=== PATIENT | female | born 1960 | race Caucasian/White ===

== ENCOUNTER 2019-04-07 14:20 | Observation (INO) | payer MEDICARE, BC ==
[2019-04-07] MEDS ORDERED: Potassium Chloride 20 MEQ in Premix Bag 1 BAG IV ONE ×3 (14:55→18:55)
[2019-04-07] MEDS ORDERED: Loperamide 2 MG Cap PO PRN (14:57)
[2019-04-07] MEDS ORDERED: Acetaminophen 325 MG Tab PO PRN (14:57)
[2019-04-07 15:48] LABS: ANION GAP 15.1 mmol/L (5-15); CHLORIDE,CL 101 mmol/L (98-115); SODIUM,NA 133 mmol/L (136-145)
[2019-04-07] MEDS: Dextrose 5%-0.45% NaCl 1,000 ML IV SCH (15:52)
[2019-04-07] MEDS ORDERED: guaiFENesin 600 MG Tab.ER PO PRN (17:01)
[2019-04-07] MEDS ORDERED: Lidocaine 2% 100 MG/5 ML Syringe IVPUSH PRN (19:07)
[2019-04-07] MEDS ORDERED: Atropine 0.1 MG/ML 10 ML Syringe IVPUSH PRN (19:07)
[2019-04-07] MEDS ORDERED: EPINEPHrine 1:10,000 1 MG/10 ML Syringe IVPUSH PRN (19:07)
[2019-04-07] MEDS ORDERED: Nitroglycerin 0.4 MG Tab.SL SL PRN (19:07)
[2019-04-07] MEDS ORDERED: Amitriptyline 25 MG Tab PO SCH (21:00)
[2019-04-07] MEDS ORDERED: Sertraline 50 MG Tab PO SCH (21:00)
[2019-04-07] MEDS ORDERED: Non-Formulary Medication 1 Each (Brinzolamide [Azopt 1% Ophth Susp] 1 DROP) EYEBOTH SCH (21:00)
[2019-04-07] MEDS: ACETAZOLAMIDE 125 MG PO SCH (21:23)
[2019-04-08] MEDS: Dextrose 5%-0.45% NaCl 1,000 ML IV SCH (00:27)
[2019-04-08] MEDS ORDERED: Omeprazole 20 MG Cap.CR PO SCH (07:30)
[2019-04-08 07:39] LABS: ANION GAP 16.9 mmol/L (5-15); CHLORIDE,CL 108 mmol/L (98-115); SODIUM,NA 142 mmol/L (136-145)
[2019-04-08] MEDS: ACETAZOLAMIDE 125 MG PO SCH ×3 (08:37→21:23)
[2019-04-08] MEDS ORDERED: Lisinopril 5 MG Tab PO SCH (09:00)
--- NOTE | 2019-04-08 10:51 | PCM.PN ---
- General Info Date of Service: 04/08/19 Functional Status: Reports: Pain Controlled, Tolerating Diet, Urinating, New Symptoms (Very tired and fatigued today). Denies: Ambulating - Review of Systems General: Reports: Weakness, Fatigue, Malaise. Denies: Fever HEENT: Reports: No Symptoms Pulmonary: Reports: No Symptoms Cardiovascular: Reports: No Symptoms Gastrointestinal: Reports: Decreased Appetite, Diarrhea. Denies: Abdominal Pain , Nausea, Vomiting Genitourinary: Reports: No Symptoms Musculoskeletal: Reports: No Symptoms Skin: Reports: Dryness Neurological: Denies: Confusion Psychiatric: Reports: No Symptoms - Patient Data Vitals - Most Recent: Last Vital Signs Temp 97.0 F 04/08/19 07:00 Pulse 76 04/08/19 07:00 Resp 20 04/08/19 07:00 BP 94/56 L 04/08/19 09:47 Pulse Ox 94 L 04/08/19 07:00 Weight - Most Recent: 159 lb 9.6 oz I&O - Last 24 Hours: Intake & Output 04/07/19 04/08/19 04/08/19 22:59 06:59 14:59 Intake Total 440 2339 Output Total 1000 Balance 440 1339 Lab Results Last 24 Hours: Laboratory Results - last 24 hr 04/07/19 04/08/19 04/08/19 Range/Units 15:05 00:15 07:00 Sodium 133 L D 142 (136-145) mmol/L Potassium 2.5 L 4.1 D 3.1 L (3.3-5.3) mmol/L Chloride 101 108 (98-115) mmol/L Carbon Dioxide 19.4 L 20.2 L (21.0-32.0) mmol/L Anion Gap 15.1 H 16.9 H (5-15) mmol/L BUN 10 6 (6-25) mg/dL Creatinine 0.83 0.64 (0.51-1.17) mg/dL Est Cr Clr Drug Dosing TNP 75.78 Estimated GFR (MDRD) > 60 > 60 mL/min Glucose 101 H 106 H (75 - 99) mg/dL Calcium 8.3 L 8.0 L (8.7-10.3) mg/dL Gallo Results Last 24 Hours: Microbiology 04/07/19 19:20 Stool for WBCs - Final Stool / Feces NO WBC SEEN REFERENCE RANGE: NO WBC SEEN 04/07/19 19:20 Clostridioides difficile Antigen - Final Stool / Feces NEGATIVE CDIFF AG REFERENCE RANGE: NEGATIVE Clostridioides difficile Toxin Assay - Final NEGATIVE CDIFF TOXIN REFERENCE RANGE: NEGATIVE Med Orders - Current: Current Medications Acetaminophen (Tylenol) 650 mg PO Q6H PRN PRN Reason: Fever Amitriptyline HCl (Elavil) 75 mg PO BEDTIME [facility] Last Admin: 04/07/19 21:23 Dose: 75 mg Atropine Sulfate (Atropine 0.1 Mg/Ml) 0 mg IVPUSH ASDIRECTED PRN PRN Reason: Heart. Epinephrine HCl (Epinephrine 1:10,000) 1 mg IVPUSH ASDIRECTED PRN PRN Reason: Heart. Guaifenesin (Mucinex) 600 mg PO BID PRN PRN Reason: Cough Dextrose/Sodium Chloride (Dextrose 5%-1/2 Ns) 1,000 mls @ 125 mls/hr IV ASDIRECTED [facility] Last Admin: 04/08/19 00:27 Dose: 125 mls/hr Lidocaine HCl (Xylocaine 2%) 0 mg IVPUSH ASDIRECTED PRN PRN Reason: Heart. Lisinopril (Prinivil) 5 mg PO DAILY [facility] Last Admin: 04/08/19 09:47 Dose: Not Given Loperamide HCl (Imodium) 2 mg PO Q4H PRN PRN Reason: Diarrhea Nitroglycerin (Nitrostat) 0.4 mg SL ASDIRECTED PRN PRN Reason: Heart. Non-Formulary Medication (Brinzolamide [Azopt 1% Ophth Susp]) 1 drop EYEBOTH BID [facility] Omeprazole (Omeprazole) 40 mg PO ACBREAKFAST [facility] Last Admin: 04/08/19 07:33 Dose: 40 mg Acetazolamide 125 Mg (Tab *Pt Own Med*) 0 each PO TID [facility] Last Admin: 04/08/19 08:37 Dose: 1 each Sertraline HCl (Zoloft) 150 mg PO BEDTIME [facility] Last Admin: 04/07/19 21:24 Dose: 150 mg Discontinued Medications Potassium Chloride 20 meq/ (Premix) 100 mls @ 50 mls/hr IV ONETIME ONE Stop: 04/07/19 16:54 Last Admin: 04/07/19 15:57 Dose: 50 mls/hr Potassium Chloride 20 meq/ (Premix) 100 mls @ 50 mls/hr IV ONETIME ONE Stop: 04/07/19 18:54 Last Admin: 04/07/19 18:05 Dose: 50 mls/hr Potassium Chloride 20 meq/ (Premix) 100 mls @ 50 mls/hr IV ONETIME ONE Stop: 04/07/19 20:54 Last Admin: 04/07/19 20:25 Dose: 50 mls/hr - Exam Quality Assessment: No: Supplemental Oxygen, DVT Prophylaxis General: Alert, Oriented, Cooperative, No Acute Distress Neck: No JVD Lungs: Clear to Auscultation, Normal Respiratory Effort Cardiovascular: Regular Rate, Regular Rhythm GI/Abdominal Exam: Normal Bowel Sounds, Soft, Non-Tender, No Distention. No: Distended, Guarding, Rigid, Rebound, Tender (Female) Exam: Deferred Back Exam: No: CVA Tenderness (L), CVA Tenderness (R) Extremities: No Pedal Edema Peripheral Pulses: 2+: Radial (L), Radial (R) Skin: Dry Neurological: No New Focal Deficit Psy/Mental Status: Alert, Labile Mood Sepsis Event Note - Evaluation Sepsis Screening Result: No Definite Risk - Focused Exam Vital Signs: Vital Signs Temp Pulse Resp BP BP Pulse Ox 04/08/19 09:47 94/56 L 04/08/19 07:00 97.0 F 76 20 94/54 L 94 L 04/08/19 02:57 97.0 F 71 20 98/60 94 L 04/07/19 22:53 98.0 F 80 20 120/67 96 Date Exam was Performed: 04/08/19 Time Exam was Performed: 10:38 - Problem List Review Problem List Initiated/Reviewed/Updated: Yes - Plan Plan:: History summary 58-year-old female was admitted yesterday from the [facility] by Radha BROWN due to symptoms suggestive of gastroenteritis came in with a 4-day history of URI type symptoms however started having diarrhea chills, dry heaves with decreased appetite and weakness alternating with undocumented fevers audible low potassium at 3.0. Patient was admitted to [facility] for further diagnostic work-up to exclude infectious diarrhea and potassium replacement along with IV fluids. Primary Hospital problems Hypokalemia Diarrhea, suspect gastroenteritis, Dehydration, profound, intravascular deficit Hypotension, likely volume deficit Chronic/stable problems HTN, holding ANNA inhibitor HLD, statin therapy Depression, amitriptyline, SSRI Disposition/overall plan --bolus fluids then change to D5-1/2 NS with potassium --Discontinue telemetry --Attempt to advance diet this evening --Antidiarrheal, C. difficile negative --Hold antihypertensives --OOB, to chair
[2019-04-08] MEDS ORDERED: Lactated Ringers 1,000 ML IV SCH (11:00)
[2019-04-08] MEDS: D5 1/2 NS w/ 40 mEq/L KCl 1,000 ML IV SCH (15:05)
[2019-04-08] MEDS ORDERED: AMITRIPTYLINE PO SCH (21:00)
[2019-04-08] MEDS ORDERED: SERTRALINE PO SCH (21:00)
[2019-04-08] MEDS: BRINZOLAMIDE EYEBOTH SCH (21:23)
[2019-04-09] MEDS: D5 1/2 NS w/ 40 mEq/L KCl 1,000 ML IV SCH (01:49)
[2019-04-09 07:18] VITALS: BP 110/67; PULSE 75
[2019-04-09] MEDS ORDERED: OMEPRAZOLE 40 MG PO SCH (07:30)
[2019-04-09] MEDS: BRINZOLAMIDE EYEBOTH SCH (08:11)
[2019-04-09] MEDS: ACETAZOLAMIDE 125 MG PO SCH ×2 (08:11→14:42)
[2019-04-09 08:18] LABS: ANION GAP 15.6 mmol/L (5-15); CHLORIDE,CL 111 mmol/L (98-115); SODIUM,NA 145 mmol/L (136-145)
[2019-04-09] MEDS ORDERED: LISINOPRIL 5 MG PO SCH ×2 (09:00)
== END 2019-04-09 16:25 | disposition home or self-care (01) ==
LOC: KA.MS 14:20
PROVIDERS: ADMIT Physician Assistant Medical; ATTEND Family Medicine
DX: K52.9 Noninfective gastroenteritis and colitis, unspecified (principal); E86.0 Dehydration; E87.6 Hypokalemia; I95.9 Hypotension, unspecified; I10 Essential (primary) hypertension; E78.5 Hyperlipidemia, unspecified; K21.9 Gastro-esophageal reflux disease without esophagitis; F32.9 Major depressive disorder, single episode, unspecified; Z79.899 Other long term (current) drug therapy
CPT/HCPCS: 36415; 80048; 84132; 87045; 87046; 87324; 87328; 87329; 87449; 87899; 89055; 96361; 96365; 96366; 96376; A9270; G0378; G0379; J3480; J7042; J7120

== ENCOUNTER 2020-12-22 22:30 | Observation (INO) | payer MEDICARE, BC ==
--- NOTE | 2020-12-22 23:44 | EDM.PDOC ---
ED HPI GENERAL MEDICAL PROBLEM - General Chief Complaint: General Stated Complaint: Weakness, emesis Time Seen by Provider: 12/22/20 22:40 Source of Information: Reports: Patient History Limitations: Reports: No Limitations - History of Present Illness INITIAL COMMENTS - FREE TEXT/NARRATIVE: 60-year-old female presents to the emergency room with complaints of vomiting episode earlier this evening. She reports approximately 2130 she had several emesis episodes. She denies significant abdominal pain currently no fever or chills she denies any recent upper respiratory infections, coughing, no chest pain or shortness of breath. She has not had any recurrence of the vomiting. She currently denies any nausea. She does state that she has frequent loose stools which is not uncommon for her. She did have a bowel movement this evening in the emergency room which was loose. She denies any blood in her stools. No blood in her urine. No frequency urgency. She feels that she became concerned because she had a previous episode back in 2014 when she had a small bowel obstruction which required her to be in hospital. She feels that she may have jumped the gun a little bit per patient's report. She is feeling much better. She does not wish to take any antinausea medication. No other complaints or concerns are voiced. Onset: Today, Sudden Onset Date: 12/22/20 Onset Time: 21:30 Duration: Minutes:, Resolved Prior to Arrival Location: Reports: Abdomen Quality: Reports: Ache Severity: Mild Improves with: Reports: None Worsens with: Reports: None Associated Symptoms: Reports: Nausea/Vomiting. Denies: Confusion, Chest Pain, Cough, Diaphoresis, Fever/Chills, Headaches, Loss of Appetite, Shortness of Breath, Syncope - Related Data Allergies Allergy/AdvReac Type Severity Reaction Status Date / Time No Known Allergies Allergy Verified 12/22/20 22:50 Home Meds: Home Meds Lisinopril 5 mg PO DAILY 11/12/14 [History] Omeprazole [Prilosec] 40 mg PO ACBREAKFAST 11/12/14 [History] Sertraline HCl 150 mg PO BEDTIME 11/12/14 [History] Acetaminophen [Tylenol Extra Strength] 500 - 1,000 mg PO Q4H PRN 04/07/19 [History] Amitriptyline HCl 75 mg PO BEDTIME 04/07/19 [History] Brinzolamide [Azopt 1% Ophth Susp] 1 drop EYEBOTH BID 04/07/19 [History] Ibuprofen 400 mg PO ASDIRECTED PRN 04/07/19 [History] atorvaSTATin [Lipitor] 20 mg PO DAILY 04/07/19 [History] polyethylene glycoL 3350 [MiraLAX] 17 gm PO DAILY PRN 04/07/19 [History] Past Medical History HEENT History: Reports: Impaired Vision, Other (See Below) Other HEENT History: Retinitis Pigmatosa Cardiovascular History: Reports: High Cholesterol, Hypertension Respiratory History: Reports: None Gastrointestinal History: Reports: Chronic Constipation, GERD Genitourinary History: Reports: Other (See Below) Other Genitourinary History: Prolapsed bladder [employer] HAND History: Reports: Musculoskeletal History: Reports: Amputation, Fibromyalgia Neurological History: Reports: None Psychiatric History: Reports: Anxiety, Depression Endocrine/Metabolic History: Reports: None Hematologic History: Reports: None Immunologic History: Reports: None Oncologic (Cancer) History: Reports: None Dermatologic History: Reports: None - Infectious Disease History Infectious Disease History: Reports: Chicken Pox - Past Surgical History Head Surgeries/Procedures: Reports: None HEENT Surgical History: Reports: Tonsillectomy Cardiovascular Surgical History: Reports: None Respiratory Surgical History: Reports: None GI Surgical History: Reports: Colonoscopy, EGD, Other (See Below) Other GI Surgeries/Procedures: Esophagus banding Female Surgical History: Reports: Tubal Ligation, Other (See Below) Other Female Surgeries/Procedures: Bladder lift; Left oophorectomy Endocrine Surgical History: Reports: None Neurological Surgical History: Reports: None Musculoskeletal Surgical History: Reports: Amputation, Arthroscopic Knee, Knee Replacement Other Musculoskeletal Surgeries/Procedures:: Lt knee Oncologic Surgical History: Reports: None Dermatological Surgical History: Reports: None Social & Family History - Family History Family Medical History: No Pertinent Family History - Tobacco Use Tobacco Use Status *Q: Never Tobacco User - Caffeine Use Caffeine Use: Reports: Coffee, Soda - Recreational Drug Use Recreational Drug Use: No ED ROS GENERAL - Review of Systems Review Of Systems: See Below Constitutional: Denies: Fever, Chills, Diaphoresis HEENT: Denies: Throat Pain, Throat Swelling, Vision Change Respiratory: Denies: Shortness of Breath, Wheezing Cardiovascular: Denies: Chest Pain, Lightheadedness Endocrine: Reports: No Symptoms GI/Abdominal: Reports: Diarrhea, Vomiting. Denies: Abdominal Pain, Anorexia, Black Stool, Bloody Stool, Distension, Hematemesis, Nausea : Denies: Discharge, Dysuria, Flank Pain, Frequency, Hematuria Musculoskeletal: Reports: No Symptoms Skin: Reports: No Symptoms Neurological: Reports: No Symptoms Psychiatric: Reports: No Symptoms Hematologic/Lymphatic: Reports: No Symptoms Immunologic: Reports: No Symptoms ED EXAM, GENERAL - Physical Exam Exam: See Below Exam Limited By: No Limitations General Appearance: Alert, WD/WN, No Apparent Distress Eye Exam: Bilateral Eye: EOMI Ears: Hearing Grossly Normal Nose: Normal Inspection Throat/Mouth: Normal Inspection, Normal Voice, No Airway Compromise Head: Atraumatic, Normocephalic Neck: Normal Inspection, Supple, Non-Tender, Full Range of Motion Respiratory/Chest: No Respiratory Distress, Lungs Clear, Normal Breath Sounds, No Accessory Muscle Use, Chest Non-Tender Cardiovascular: Normal Peripheral Pulses, Regular Rate, Rhythm, No Murmur GI/Abdominal: Normal Bowel Sounds, Soft, Non-Tender, No Organomegaly, No Distention, No Mass, Pelvis Stable Back Exam: Normal Inspection, Full Range of Motion. No: CVA Tenderness (L), CVA Tenderness (R) Extremities: Normal Inspection, Normal Range of Motion, Non-Tender, No Pedal Edema, Normal Capillary Refill Neurological: Alert, Oriented, CN II-XII Intact, No Motor/Sensory Deficits Psychiatric: Normal Affect, Normal Mood Skin Exam: Warm, Dry, Intact, Normal Color, No Rash Lymphatic: No Adenopathy Course - Vital Signs Last Recorded V/S: Last Vital Signs Temp 97.1 F 12/22/20 22:54 Pulse 67 12/23/20 00:32 Resp 18 12/23/20 00:32 BP 106/58 L 12/23/20 00:32 Pulse Ox 93 L 12/23/20 00:32 - Orders/Labs/Meds Orders: Active Orders 24 hr Category Date Time Status UA W/MICROSCOPIC [URIN] Stat Lab 12/22/20 23:27 Ordered Dextrose 5%-1/2 NS w/20 mEq/L KCl @ 100 mL/Hr (1000 mL) Med 12/23/20 00:30 Ordered D5 1/2 NS w/ 20 mEq/L KCl 1,000 ml IV ASDIRECTED Medication Orders Potassium Chloride/Dextrose/Sod Cl (D5 1/2 Ns W/ 20 Meq/L Kcl) 1,000 mls @ 100 mls/hr IV ASDIRECTED [facility] Last Admin: 12/23/20 00:28 Dose: 100 mls/hr Documented by: PARVIN Labs: Laboratory Tests 12/22/20 12/22/20 Range/Units 23:50 23:50 WBC 15.15 H (5.00-10.00) 10^3/uL RBC 4.32 (3.80-5.50) 10^6/uL Hgb 12.2 (12.0-16.0) g/dL Hct 38.6 (37.0-47.0) % MCV 89.4 (82.0-92.0) fL MCH 28.2 (27.0-31.0) pg MCHC 31.6 L (32.0-36.0) g/dL RDW 14.3 (11.5-14.5) % Plt Count 231 (150-400) 10^3/uL MPV 9.9 (7.4-10.4) fL Immature Gran % (Auto) 0.4 (0.0-5.0) % Neut % (Auto) 79.8 H (50.0-70.0) % Lymph % (Auto) 11.7 L (20.0-40.0) % Cedar % (Auto) 6.5 (2.0-8.0) % Eos % (Auto) 1.3 (1.0-3.0) % Baso % (Auto) 0.3 (0.0-1.0) % Neut # (Auto) 12.08 H (2.50-7.00) 10^3/uL Lymph # (Auto) 1.78 (1.00-4.00) 10^3/uL Cedar # (Auto) 0.99 H (0.10-0.80) 10^3/uL Eos # (Auto) 0.19 (0.10-0.30) 10^3/uL Baso # (Auto) 0.05 (0.00-0.10) 10^3/uL Immature Gran # (Auto) 0.06 (0.00-0.50) 10^3/uL Sodium 142 (136-145) mmol/L Potassium 2.4 L* (3.5-5.1) mmol/L Chloride 101 (98-107) mmol/L Carbon Dioxide 27.3 (21.0-32.0) mmol/L Anion Gap 16.1 H (5-15) mmol/L BUN 12 (7-18) mg/dL Creatinine 0.95 (0.51-1.17) mg/dL Est Cr Clr Drug Dosing 49.81 mL/min Estimated GFR (MDRD) > 60 mL/min Glucose 112 (70-140) mg/dL Calcium 8.2 L (8.7-10.3) mg/dL Total Bilirubin 0.2 (0.2-1.0) mg/dL AST 16 (15-37) U/L ALT 17 (14-63) U/L Alkaline Phosphatase 145 H (46-116) U/L Total Protein 7.0 (6.4-8.2) g/dL Albumin 2.94 L (3.40-5.00) g/dL Meds: Medications Generic Name Dose Route Start Last Admin Trade Name Nisreen PRN Reason Stop Dose Admin Potassium Chloride/Dextrose/Sod Cl 1,000 mls @ 100 mls/hr 12/23/20 00:30 12/23/20 00:28 D5 1/2 Ns W/ 20 Meq/L Kcl IV 100 mls/hr [facility]IRECTED [facility] Administration - Re-Assessments/Exams Free Text/Narrative Re-Assessment/Exam: 12/22/20 23:52 Patient feels her symptoms have resolved. She is no longer experiencing nausea no recurrent episodes of vomiting. She is drinking clear fluids without limitation. 12/23/20 00:45 Patient's potassium is low and CBC showed leukocytosis. Discussed with the patient meaning of fluid replacement and potassium replacement. We will place her in observation status tonight. Departure - Departure Time of Disposition: 00:36 Disposition: Refer to Observation Condition: Good Clinical Impression: Hypopotassemia, Neutrophilic leukocytosis Vomiting Qualifiers: Vomiting type: unspecified Vomiting Intractability: non-intractable Nausea presence: without nausea Qualified Code(s): R11.11 - Vomiting without nausea - Discharge Information Instructions: Nausea and Vomiting, Adult, [id number] Referrals: Melina Avery, [facility] [Primary Care Provider] - Forms: ED Department Discharge Care Plan Goals: 1. [place] diet over the next 24 hours. 2. Encourage drinking plenty of oral fluids for rehydration. 3. Rest over the weekend. 4. Follow-up with your primary care in a week if symptoms not fully resolved. 5. Irretractable vomiting or severe abdominal pain recommend following up in the emergency room. Sepsis Event Note (ED) - Evaluation Sepsis Screening Result: No Definite Risk - Focused Exam Vital Signs: Vital Signs Temp Pulse Resp BP Pulse Ox 12/23/20 00:32 67 18 106/58 L 93 L 12/22/20 23:27 72 20 119/70 95 12/22/20 22:57 77 98 12/22/20 22:54 97.1 F 70 20 111/68 97 - My Orders Last 24 Hours: My Active Orders 12/22/20 23:27 UA W/MICROSCOPIC [URIN] Stat 12/23/20 00:30 Dextrose 5%-1/2 NS w/20 mEq/L KCl @ 100 mL/Hr (1000 mL) D5 1/2 NS w/ 20 mEq/L KCl 1,000 ml IV ASDIRECTED - Assessment/Plan Last 24 Hours: My Active Orders 12/22/20 23:27 UA W/MICROSCOPIC [URIN] Stat 12/23/20 00:30 Dextrose 5%-1/2 NS w/20 mEq/L KCl @ 100 mL/Hr (1000 mL) D5 1/2 NS w/ 20 mEq/L KCl 1,000 ml IV ASDIRECTED Assessment:: Vomiting, resolved Hypopotassemia Leukocytosis, neutrophilic Plan: 1. Patient will be placed in observational overnight 2. Fluid replacement with KCl. 3. Patient will placed in telemetry with low potassium 4. Awaiting UA results once patient is able to void. Patient is likely dehydrated due to vomiting earlier's evening. 5. Melina Avery nurse practitioner will take over patient's care.
[2020-12-23 00:13] LABS: ANION GAP 16.1 mmol/L (5-15); CHLORIDE,CL 101 mmol/L (98-107); SODIUM,NA 142 mmol/L (136-145)
[2020-12-23] MEDS ORDERED: D5 1/2 NS w/ 20 mEq/L KCl 1,000 ML IV SCH (00:30)
[2020-12-23] MEDS ORDERED: Atropine 0.1 MG/ML 10 ML Syringe IVPUSH PRN (00:53)
[2020-12-23] MEDS ORDERED: Lidocaine 2% 100 MG/5 ML Syringe IVPUSH PRN (00:53)
[2020-12-23] MEDS ORDERED: EPINEPHrine 1:10,000 1 MG/10 ML Syringe IVPUSH PRN (00:53)
[2020-12-23] MEDS ORDERED: Nitroglycerin 0.4 MG Tab.SL SL PRN (00:53)
[2020-12-23] MEDS ORDERED: Potassium Chloride 20 MEQ in Premix Bag 1 BAG IV ONE ×2 (01:24→03:30)
[2020-12-23] MEDS: Sodium Chloride 0.9% 1,000 ML IV SCH ×2 (01:50→10:09)
[2020-12-23 08:06] LABS: ANION GAP 13.3 mmol/L (5-15); CHLORIDE,CL 106 mmol/L (98-107); SODIUM,NA 143 mmol/L (136-145)
[2020-12-23] MEDS ORDERED: Potassium Chloride 20 MEQ Tab.ER PO SCH (11:15)
[2020-12-23] MEDS ORDERED: Omeprazole 20 MG Cap.CR ONE (11:26)
[2020-12-23 14:26] VITALS: BP 156/69; PULSE 76
--- NOTE | 2020-12-23 15:09 | PCM.DCSUM1 ---
Discharge Summary - Hospital Course Free Text/Narrative:: Date of admission: 12/22/2020 Date of discharge: 12/23/2020 Admission diagnoses: # Hypokalemia # Vomiting # Nausea # Diarrhea Discharge diagnoses: # Hypokalemia, resolved # Vomiting, resolved # Nausea, resolved # Diarrhea, resolved # HTN # HLD # Fibromyalgia # Colitis # GERD # Glaucoma Consultations: None Procedures: None Hospital course: HPI summary: 60 year old female admitted with hypokalemia, nausea, vomiting, diarrhea. Patient reports symptoms started last evening and she presented to the ED via personal car. Symptoms improved while in the ED, however it was noted she had hypokalemia. Patient has pertinent history of colitis and small bowel obstruction. ED course: -VS: 97.1-67-18-106/58-93% -Lab: WBC 15.15, Neut 79.8%, Na 142, K 2.4, anion gap 16.1, remainder of labs unremarkable. Urine ok; COVID neg -D5 1/2 NS w/ 20mEq KCl @ 100/hr -Admit obs Hospital course: 12/22/2020: Patient admitted observation to floor, IVF switched to NS at 125mL/hr with KCl 20mEq cocktails IV x 2. Will obtain repeat lab in the AM. 12/23/2020: Patient reports improvement overnight. K 3.3. WBC 11.11, neut 76%Given oral potassium 20mEq today. Tolerating oral intake without nausea/vomiting. Passing gas. No abdominal pain. Patient requesting discharge home. Discharge and follow-up recommendations: - Discharge to home - New medications at discharge: - Potassium 10mEq oral daily - Follow-up at [facility] on 12/28/2020, recheck potassium - Discharge Data Discharge Date: 12/23/20 Discharge Disposition: Home, Self-Care 01 Condition: Good - Referral to Home Health Primary Care Physician: Melina Avery NP - Patient Instructions Diet, Other: Sac diet Activity: As Tolerated Notify Provider of: Fever, Increased Pain, Nausea and/or Vomiting Other/Special Instructions: If develops abdominal pain, stops passing gas or stool. Please return to the emergency room. - Discharge Plan *PRESCRIPTION DRUG MONITORING PROGRAM REVIEWED*: Not Applicable *COPY OF PRESCRIPTION DRUG MONITORING REPORT IN PATIENT HARPREET: Not Applicable Prescriptions/Med Rec: Potassium Chloride 10 meq PO DAILY 2 Days #2 capsule.er Home Medications: Home Meds Lisinopril 5 mg PO DAILY 11/12/14 [History] Omeprazole [Prilosec] 40 mg PO ACBREAKFAST 11/12/14 [History] Sertraline HCl 150 mg PO BEDTIME 11/12/14 [History] Acetaminophen [Tylenol Extra Strength] 500 - 1,000 mg PO Q4H PRN 04/07/19 [History] Amitriptyline HCl 75 mg PO BEDTIME 04/07/19 [History] Brinzolamide [Azopt 1% Ophth Susp] 1 drop EYEBOTH BID 04/07/19 [History] atorvaSTATin [Lipitor] 20 mg PO DAILY 04/07/19 [History] polyethylene glycoL 3350 [MiraLAX] 17 gm PO DAILY PRN 04/07/19 [History] Potassium Chloride 10 meq PO DAILY 2 Days #2 capsule.er 12/23/20 [Rx] Referrals: Melina Avery [employer] [Primary Care Provider] - (Follow up with Melina Avery in [place] on 12/28/2020. Please call to set this appointment up.) - Discharge Summary/Plan Comment DC Time >30 min.: Yes Total # of Minutes for Discharge Time: 45 - General Info Functional Status: Reports: Pain Controlled, Tolerating Diet, Ambulating, Urinating. Denies: New Symptoms - Review of Systems General: Denies: Fever, Weakness, Fatigue HEENT: Denies: Ear Pain, Headaches, Sinus Congestion, Sore Throat Pulmonary: Denies: Shortness of Breath, Cough, Sputum, Wheezing Cardiovascular: Denies: Chest Pain, Palpitations, Edema Gastrointestinal: Denies: Diarrhea, Nausea, Vomiting Genitourinary: Denies: Dysuria, Frequency, Urgency, Hematuria Musculoskeletal: Denies: Back Pain, Leg Pain, Joint Swelling Skin: Denies: Pallor, Bruising, Rash Neurological: Denies: Confusion, Headache, Difficulty Walking - Patient Data Vitals - Most Recent: Last Vital Signs Temp 36.1 C 12/23/20 14:25 Pulse 76 12/23/20 14:25 Resp 16 12/23/20 14:25 BP 156/69 H 12/23/20 14:25 Pulse Ox 96 12/23/20 14:25 Weight - Most Recent: 80.422 kg I&O - Last 24 hours: Intake & Output 12/22/20 12/23/20 12/23/20 22:59 06:59 14:59 Intake Total 768 1896 Balance 768 1896 Lab Results - Last 24 hrs: Laboratory Results - last 24 hr 12/22/20 12/22/20 12/23/20 Range/Units 23:50 23:50 00:40 WBC 15.15 H (5.00-10.00) 10^3/uL RBC 4.32 (3.80-5.50) 10^6/uL Hgb 12.2 (12.0-16.0) g/dL Hct 38.6 (37.0-47.0) % MCV 89.4 (82.0-92.0) fL MCH 28.2 (27.0-31.0) pg MCHC 31.6 L (32.0-36.0) g/dL RDW 14.3 (11.5-14.5) % Plt Count 231 (150-400) 10^3/uL MPV 9.9 (7.4-10.4) fL Immature Gran % (Auto) 0.4 (0.0-5.0) % Neut % (Auto) 79.8 H (50.0-70.0) % Lymph % (Auto) 11.7 L (20.0-40.0) % Merrick % (Auto) 6.5 (2.0-8.0) % Eos % (Auto) 1.3 (1.0-3.0) % Baso % (Auto) 0.3 (0.0-1.0) % Neut # (Auto) 12.08 H (2.50-7.00) 10^3/uL Lymph # (Auto) 1.78 (1.00-4.00) 10^3/uL Merrick # (Auto) 0.99 H (0.10-0.80) 10^3/uL Eos # (Auto) 0.19 (0.10-0.30) 10^3/uL Baso # (Auto) 0.05 (0.00-0.10) 10^3/uL Immature Gran # (Auto) 0.06 (0.00-0.50) 10^3/uL Sodium 142 (136-145) mmol/L Potassium 2.4 L* (3.5-5.1) mmol/L Chloride 101 (98-107) mmol/L Carbon Dioxide 27.3 (21.0-32.0) mmol/L Anion Gap 16.1 H (5-15) mmol/L BUN 12 (7-18) mg/dL Creatinine 0.95 (0.51-1.17) mg/dL Est Cr Clr Drug Dosing 49.81 mL/min Estimated GFR (MDRD) > 60 mL/min Glucose 112 (70-140) mg/dL Calcium 8.2 L (8.7-10.3) mg/dL Magnesium (1.8-2.4) mg/dL Total Bilirubin 0.2 (0.2-1.0) mg/dL AST 16 (15-37) U/L ALT 17 (14-63) U/L Alkaline Phosphatase 145 H (46-116) U/L C-Reactive Protein (0.0-0.9) mg/dL Total Protein 7.0 (6.4-8.2) g/dL Albumin 2.94 L (3.40-5.00) g/dL Specimen Type Urine Color (YELLOW) Urine Appearance (CLEAR) Urine pH (5.0-9.0) Ur Specific Bellflower (1.005-1.030) Urine Protein (NEGATIVE) mg/dL Urine Glucose (UA) (NEGATIVE) mg/dL Urine Ketones (NEGATIVE) mg/dL Urine Occult Blood (NEGATIVE) Urine Nitrite (NEGATIVE) Urine Bilirubin (NEGATIVE) Urine Urobilinogen (0.2-1.0) E.U./dL Ur Leukocyte Esterase (NEGATIVE) Urine RBC (0-5) /HPF Urine WBC (0-5) /HPF Ur Epithelial Cells /LPF Urine Bacteria (NONE TO FEW) /HPF SARS CoV-2 RNA Rapid BHUMIKA Negative (NEGATIVE) 12/23/20 12/23/20 12/23/20 Range/Units 07:30 07:30 07:30 WBC 11.11 H (5.00-10.00) 10^3/uL RBC 4.01 (3.80-5.50) 10^6/uL Hgb 11.5 L (12.0-16.0) g/dL Hct 35.3 L (37.0-47.0) % MCV 88.0 (82.0-92.0) fL MCH 28.7 (27.0-31.0) pg MCHC 32.6 (32.0-36.0) g/dL RDW 14.2 (11.5-14.5) % Plt Count 202 (150-400) 10^3/uL MPV 9.8 (7.4-10.4) fL Immature Gran % (Auto) 0.4 (0.0-5.0) % Neut % (Auto) 76.0 H (50.0-70.0) % Lymph % (Auto) 14.0 L (20.0-40.0) % Merrick % (Auto) 7.5 (2.0-8.0) % Eos % (Auto) 1.8 (1.0-3.0) % Baso % (Auto) 0.3 (0.0-1.0) % Neut # (Auto) 8.46 H (2.50-7.00) 10^3/uL Lymph # (Auto) 1.55 (1.00-4.00) 10^3/uL Merrick # (Auto) 0.83 H (0.10-0.80) 10^3/uL Eos # (Auto) 0.20 (0.10-0.30) 10^3/uL Baso # (Auto) 0.03 (0.00-0.10) 10^3/uL Immature Gran # (Auto) 0.04 (0.00-0.50) 10^3/uL Sodium 143 (136-145) mmol/L Potassium 3.3 L (3.5-5.1) mmol/L Chloride 106 (98-107) mmol/L Carbon Dioxide 27.0 (21.0-32.0) mmol/L Anion Gap 13.3 (5-15) mmol/L BUN 9 (7-18) mg/dL Creatinine 0.75 (0.51-1.17) mg/dL Est Cr Clr Drug Dosing 63.09 mL/min Estimated GFR (MDRD) > 60 mL/min Glucose 91 (70-140) mg/dL Calcium 7.9 L (8.7-10.3) mg/dL Magnesium 2.0 (1.8-2.4) mg/dL Total Bilirubin 0.3 (0.2-1.0) mg/dL AST 14 L (15-37) U/L ALT 15 (14-63) U/L Alkaline Phosphatase 138 H (46-116) U/L C-Reactive Protein 1.3 H (0.0-0.9) mg/dL Total Protein 6.5 (6.4-8.2) g/dL Albumin 2.72 L (3.40-5.00) g/dL Specimen Type Urine Color (YELLOW) Urine Appearance (CLEAR) Urine pH (5.0-9.0) Ur Specific Bellflower (1.005-1.030) Urine Protein (NEGATIVE) mg/dL Urine Glucose (UA) (NEGATIVE) mg/dL Urine Ketones (NEGATIVE) mg/dL Urine Occult Blood (NEGATIVE) Urine Nitrite (NEGATIVE) Urine Bilirubin (NEGATIVE) Urine Urobilinogen (0.2-1.0) E.U./dL Ur Leukocyte Esterase (NEGATIVE) Urine RBC (0-5) /HPF Urine WBC (0-5) /HPF Ur Epithelial Cells /LPF Urine Bacteria (NONE TO FEW) /HPF SARS CoV-2 RNA Rapid BHUMIKA (NEGATIVE) 12/23/20 Range/Units 09:30 WBC (5.00-10.00) 10^3/uL RBC (3.80-5.50) 10^6/uL Hgb (12.0-16.0) g/dL Hct (37.0-47.0) % MCV (82.0-92.0) fL MCH (27.0-31.0) pg MCHC (32.0-36.0) g/dL RDW (11.5-14.5) % Plt Count (150-400) 10^3/uL MPV (7.4-10.4) fL Immature Gran % (Auto) (0.0-5.0) % Neut % (Auto) (50.0-70.0) % Lymph % (Auto) (20.0-40.0) % Merrick % (Auto) (2.0-8.0) % Eos % (Auto) (1.0-3.0) % Baso % (Auto) (0.0-1.0) % Neut # (Auto) (2.50-7.00) 10^3/uL Lymph # (Auto) (1.00-4.00) 10^3/uL Merrick # (Auto) (0.10-0.80) 10^3/uL Eos # (Auto) (0.10-0.30) 10^3/uL Baso # (Auto) (0.00-0.10) 10^3/uL Immature Gran # (Auto) (0.00-0.50) 10^3/uL Sodium (136-145) mmol/L Potassium (3.5-5.1) mmol/L Chloride (98-107) mmol/L Carbon Dioxide (21.0-32.0) mmol/L Anion Gap (5-15) mmol/L BUN (7-18) mg/dL Creatinine (0.51-1.17) mg/dL Est Cr Clr Drug Dosing mL/min Estimated GFR (MDRD) mL/min Glucose (70-140) mg/dL Calcium (8.7-10.3) mg/dL Magnesium (1.8-2.4) mg/dL Total Bilirubin (0.2-1.0) mg/dL AST (15-37) U/L ALT (14-63) U/L Alkaline Phosphatase (46-116) U/L C-Reactive Protein (0.0-0.9) mg/dL Total Protein (6.4-8.2) g/dL Albumin (3.40-5.00) g/dL Specimen Type Urincc Urine Color Yellow (YELLOW) Urine Appearance Clear (CLEAR) Urine pH 5.5 (5.0-9.0) Ur Specific Bellflower 1.010 (1.005-1.030) Urine Protein Negative (NEGATIVE) mg/dL Urine Glucose (UA) Negative (NEGATIVE) mg/dL Urine Ketones Negative (NEGATIVE) mg/dL Urine Occult Blood Trace-intact H (NEGATIVE) Urine Nitrite Negative (NEGATIVE) Urine Bilirubin Negative (NEGATIVE) Urine Urobilinogen 0.2 (0.2-1.0) E.U./dL Ur Leukocyte Esterase Trace H (NEGATIVE) Urine RBC 0-5 (0-5) /HPF Urine WBC 5-10 H (0-5) /HPF Ur Epithelial Cells Few /LPF Urine Bacteria Rare (NONE TO FEW) /HPF SARS CoV-2 RNA Rapid BHUMIKA (NEGATIVE) Med Orders - Current: Current Medications Atropine Sulfate (Atropine 0.1 Mg/Ml 10 Ml Syringe) 0 mg IVPUSH ASDIRECTED PRN PRN Reason: Heart. Epinephrine HCl (Epinephrine 1:10,000 1 Mg/10 Ml Syringe) 1 mg IVPUSH ASDIRECTED PRN PRN Reason: Heart. Sodium Chloride (Normal Saline) 1,000 mls @ 125 mls/hr IV ASDIRECTED [facility] Last Admin: 12/23/20 10:09 Dose: 125 mls/hr Documented by: Lidocaine HCl (Lidocaine 2% 100 Mg/5 Ml Syringe) 0 mg IVPUSH ASDIRECTED PRN PRN Reason: Heart. Nitroglycerin (Nitroglycerin 0.4 Mg Tab.Sl) 0.4 mg SL ASDIRECTED PRN PRN Reason: Heart. Omeprazole (Omeprazole 20 Mg Cap.Cr) 40 mg PO ACBREAKFAST [facility] Last Admin: 12/23/20 11:28 Dose: 40 mg Documented by: Potassium Chloride (Potassium Chloride 20 Meq Tab.Er) 20 meq PO DAILY [facility] Last Admin: 12/23/20 11:17 Dose: 20 meq Documented by: Discontinued Medications Potassium Chloride/Dextrose/Sod Cl (D5 1/2 Ns W/ 20 Meq/L Kcl) 1,000 mls @ 100 mls/hr IV ASDIRECTED [facility] Last Admin: 12/23/20 00:28 Dose: 100 mls/hr Documented by: Potassium Chloride 20 meq/ (Premix) 100 mls @ 50 mls/hr IV ONETIME ONE Stop: 12/23/20 03:23 Last Admin: 12/23/20 01:50 Dose: 50 mls/hr Documented by: Potassium Chloride 20 meq/ (Premix) 100 mls @ 50 mls/hr IV ONETIME ONE Stop: 12/23/20 05:29 Last Admin: 12/23/20 04:02 Dose: 50 mls/hr Documented by: Omeprazole (Omeprazole 20 Mg Cap.Cr) Confirm Administered Dose 40 mg .ROUTE .STK-MED ONE Stop: 12/23/20 11:27 Last Admin: 12/23/20 11:29 Dose: Not Given Documented by: - Exam Physical Findings Comments:: GENERAL: Well-appearing adult in no acute distress. HEENT: Normocephalic, atraumatic. Conjunctiva clear. Nares patent without discharge. Mucous membranes moist, posterior pharynx unremarkable. NECK: Supple, no masses. CV: Regular rate and rhythm, no murmurs, rubs, or gallops. 2+ radial pulses. PULMONARY: Normal effort, clear to auscultation bilaterally, no wheezes, rales, or rhonchi. ABDOMEN: Positive bowel sounds, soft, nontender, nondistended. EXTREMITIES: No edema, cyanosis, or clubbing. MUSCULOSKELETAL: Moves all extremities well. NEUROLOGICAL: No obvious deficits. DERMATOLOGIC: No rashes or suspicious lesions in exposed areas. PSYCHIATRIC: Alert, interactive, appropriate affect.
[2020-12-23] MEDS ORDERED: Potassium Chloride 20 MEQ Tab.ER PO ONE (15:29)
--- NOTE | 2020-12-23 16:29 | PCM.HP.2 ---
H&P History of Present Illness - General Date of Service: 12/23/20 Admit Problem/Dx: Admission Diagnosis/Problem Admission Diagnosis/Problem Electrolyte and fluid disorder Source of Information: Patient - History of Present Illness Initial Comments - Free Text/Narative: 60 year old female admitted with hypokalemia, nausea, vomiting, diarrhea. Patient reports symptoms started last evening and she presented to the ED via personal car. Symptoms improved while in the ED, however it was noted she had hypokalemia. Patient has pertinent history of colitis and small bowel obstruction. - Related Data Allergies/Adverse Reactions: Allergies Allergy/AdvReac Type Severity Reaction Status Date / Time No Known Allergies Allergy Verified 12/22/20 22:50 Home Medications: Home Meds Lisinopril 5 mg PO DAILY 11/12/14 [History] Omeprazole [Prilosec] 40 mg PO ACBREAKFAST 11/12/14 [History] Sertraline HCl 150 mg PO BEDTIME 11/12/14 [History] Acetaminophen [Tylenol Extra Strength] 500 - 1,000 mg PO Q4H PRN 04/07/19 [History] Amitriptyline HCl 75 mg PO BEDTIME 04/07/19 [History] Brinzolamide [Azopt 1% Ophth Susp] 1 drop EYEBOTH BID 04/07/19 [History] atorvaSTATin [Lipitor] 20 mg PO DAILY 04/07/19 [History] polyethylene glycoL 3350 [MiraLAX] 17 gm PO DAILY PRN 04/07/19 [History] Potassium Chloride 10 meq PO DAILY 2 Days #2 capsule.er 12/23/20 [Rx] Past Medical History HEENT History: Reports: Impaired Vision, Other (See Below) Other HEENT History: Retinitis Pigmatosa Cardiovascular History: Reports: High Cholesterol, Hypertension Respiratory History: Reports: None Gastrointestinal History: Reports: Chronic Constipation, GERD Genitourinary History: Reports: Other (See Below) Other Genitourinary History: Prolapsed bladder [employer] History: Reports: Musculoskeletal History: Reports: Amputation, Fibromyalgia Neurological History: Reports: None Psychiatric History: Reports: Anxiety, Depression Endocrine/Metabolic History: Reports: None Hematologic History: Reports: None Immunologic History: Reports: None Oncologic (Cancer) History: Reports: None Dermatologic History: Reports: None - Infectious Disease History Infectious Disease History: Reports: Chicken Pox - Past Surgical History Head Surgeries/Procedures: Reports: None HEENT Surgical History: Reports: Tonsillectomy Cardiovascular Surgical History: Reports: None Respiratory Surgical History: Reports: None GI Surgical History: Reports: Colonoscopy, EGD, Other (See Below) Other GI Surgeries/Procedures: Esophagus banding Female Surgical History: Reports: Tubal Ligation, Other (See Below) Other Female Surgeries/Procedures: Bladder lift; Left oophorectomy Endocrine Surgical History: Reports: None Neurological Surgical History: Reports: None Musculoskeletal Surgical History: Reports: Amputation, Arthroscopic Knee, Knee Replacement Other Musculoskeletal Surgeries/Procedures:: Lt knee Oncologic Surgical History: Reports: None Dermatological Surgical History: Reports: None Social & Family History - Family History HEENT: Reports: Cataract, Glaucoma, Macular Degeneration Endocrine/Metabolic: Reports: Diabetes, type II Oncologic: Reports: Breast - Tobacco Use Tobacco Use Status *Q: Never Tobacco User - Caffeine Use Caffeine Use: Reports: Coffee, Soda - Recreational Drug Use Recreational Drug Use: No H&P Review of Systems - Review of Systems: Review Of Systems: See Below General: Denies: Fever, Weakness, Fatigue HEENT: Denies: Dysphasia, Headaches, Sinus Congestion, Sore Throat Pulmonary: Denies: Shortness of Breath, Wheezing, Cough Cardiovascular: Denies: Chest Pain, Palpitations, Edema Gastrointestinal: Denies: Abdominal Pain, Bloody Stool, Constipation, Diarrhea, Melena, Nausea, Vomiting Genitourinary: Denies: Dysuria, Frequency, Urgency, Hematuria Musculoskeletal: Reports: Muscle Pain. Denies: Joint Pain, Joint Swelling Skin: Denies: Bruising, Rash, Wound Psychiatric: Denies: Confusion, Depression, Anxiety Neurological: Denies: Headache, Numbness, Trouble Speaking, Difficulty Walking Hematologic/Lymphatic: Denies: Anemia, Easy Bleeding, Easy Bruising Exam - Exam Exam: See Below - Vital Signs Vital Signs: Last Vital Signs Temp 36.1 C 12/23/20 14:25 Pulse 76 12/23/20 14:25 Resp 16 12/23/20 14:25 BP 156/69 H 12/23/20 14:25 Pulse Ox 96 12/23/20 14:25 Weight: 80.422 kg - Exam Physical Exam Comments:: GENERAL: Well-appearing adult in no acute distress. HEENT: Normocephalic, atraumatic. Conjunctiva clear. Nares patent without discharge. Mucous membranes dry posterior pharynx unremarkable. NECK: Supple, no masses. CV: Regular rate and rhythm, no murmurs, rubs, or gallops. 2+ radial pulses. PULMONARY: Normal effort, clear to auscultation bilaterally, no wheezes, rales, or rhonchi. ABDOMEN: Positive bowel sounds, soft, nontender, nondistended. EXTREMITIES: No edema, cyanosis, or clubbing. MUSCULOSKELETAL: Moves all extremities well. NEUROLOGICAL: No obvious deficits. DERMATOLOGIC: No rashes or suspicious lesions in exposed areas. PSYCHIATRIC: Alert, interactive, appropriate affect. - Patient Data Lab Results Last 24 hrs: Laboratory Results - last 24 hr 12/22/20 12/22/20 12/23/20 Range/Units 23:50 23:50 00:40 WBC 15.15 H (5.00-10.00) 10^3/uL RBC 4.32 (3.80-5.50) 10^6/uL Hgb 12.2 (12.0-16.0) g/dL Hct 38.6 (37.0-47.0) % MCV 89.4 (82.0-92.0) fL MCH 28.2 (27.0-31.0) pg MCHC 31.6 L (32.0-36.0) g/dL RDW 14.3 (11.5-14.5) % Plt Count 231 (150-400) 10^3/uL MPV 9.9 (7.4-10.4) fL Immature Gran % (Auto) 0.4 (0.0-5.0) % Neut % (Auto) 79.8 H (50.0-70.0) % Lymph % (Auto) 11.7 L (20.0-40.0) % [place] % (Auto) 6.5 (2.0-8.0) % Eos % (Auto) 1.3 (1.0-3.0) % Baso % (Auto) 0.3 (0.0-1.0) % Neut # (Auto) 12.08 H (2.50-7.00) 10^3/uL Lymph # (Auto) 1.78 (1.00-4.00) 10^3/uL [place] # (Auto) 0.99 H (0.10-0.80) 10^3/uL Eos # (Auto) 0.19 (0.10-0.30) 10^3/uL Baso # (Auto) 0.05 (0.00-0.10) 10^3/uL Immature Gran # (Auto) 0.06 (0.00-0.50) 10^3/uL Sodium 142 (136-145) mmol/L Potassium 2.4 L* (3.5-5.1) mmol/L Chloride 101 (98-107) mmol/L Carbon Dioxide 27.3 (21.0-32.0) mmol/L Anion Gap 16.1 H (5-15) mmol/L BUN 12 (7-18) mg/dL Creatinine 0.95 (0.51-1.17) mg/dL Est Cr Clr Drug Dosing 49.81 mL/min Estimated GFR (MDRD) > 60 mL/min Glucose 112 (70-140) mg/dL Calcium 8.2 L (8.7-10.3) mg/dL Magnesium (1.8-2.4) mg/dL Total Bilirubin 0.2 (0.2-1.0) mg/dL AST 16 (15-37) U/L ALT 17 (14-63) U/L Alkaline Phosphatase 145 H (46-116) U/L C-Reactive Protein (0.0-0.9) mg/dL Total Protein 7.0 (6.4-8.2) g/dL Albumin 2.94 L (3.40-5.00) g/dL Specimen Type Urine Color (YELLOW) Urine Appearance (CLEAR) Urine pH (5.0-9.0) Ur Specific [place] (1.005-1.030) Urine Protein (NEGATIVE) mg/dL Urine Glucose (UA) (NEGATIVE) mg/dL Urine Ketones (NEGATIVE) mg/dL Urine Occult Blood (NEGATIVE) Urine Nitrite (NEGATIVE) Urine Bilirubin (NEGATIVE) Urine Urobilinogen (0.2-1.0) E.U./dL Ur Leukocyte Esterase (NEGATIVE) Urine RBC (0-5) /HPF Urine WBC (0-5) /HPF Ur Epithelial Cells /LPF Urine Bacteria (NONE TO FEW) /HPF SARS CoV-2 RNA Rapid BHUMIKA Negative (NEGATIVE) 12/23/20 12/23/20 12/23/20 Range/Units 07:30 07:30 07:30 WBC 11.11 H (5.00-10.00) 10^3/uL RBC 4.01 (3.80-5.50) 10^6/uL Hgb 11.5 L (12.0-16.0) g/dL Hct 35.3 L (37.0-47.0) % MCV 88.0 (82.0-92.0) fL MCH 28.7 (27.0-31.0) pg MCHC 32.6 (32.0-36.0) g/dL RDW 14.2 (11.5-14.5) % Plt Count 202 (150-400) 10^3/uL MPV 9.8 (7.4-10.4) fL Immature Gran % (Auto) 0.4 (0.0-5.0) % Neut % (Auto) 76.0 H (50.0-70.0) % Lymph % (Auto) 14.0 L (20.0-40.0) % [place] % (Auto) 7.5 (2.0-8.0) % Eos % (Auto) 1.8 (1.0-3.0) % Baso % (Auto) 0.3 (0.0-1.0) % Neut # (Auto) 8.46 H (2.50-7.00) 10^3/uL Lymph # (Auto) 1.55 (1.00-4.00) 10^3/uL [place] # (Auto) 0.83 H (0.10-0.80) 10^3/uL Eos # (Auto) 0.20 (0.10-0.30) 10^3/uL Baso # (Auto) 0.03 (0.00-0.10) 10^3/uL Immature Gran # (Auto) 0.04 (0.00-0.50) 10^3/uL Sodium 143 (136-145) mmol/L Potassium 3.3 L (3.5-5.1) mmol/L Chloride 106 (98-107) mmol/L Carbon Dioxide 27.0 (21.0-32.0) mmol/L Anion Gap 13.3 (5-15) mmol/L BUN 9 (7-18) mg/dL Creatinine 0.75 (0.51-1.17) mg/dL Est Cr Clr Drug Dosing 63.09 mL/min Estimated GFR (MDRD) > 60 mL/min Glucose 91 (70-140) mg/dL Calcium 7.9 L (8.7-10.3) mg/dL Magnesium 2.0 (1.8-2.4) mg/dL Total Bilirubin 0.3 (0.2-1.0) mg/dL AST 14 L (15-37) U/L ALT 15 (14-63) U/L Alkaline Phosphatase 138 H (46-116) U/L C-Reactive Protein 1.3 H (0.0-0.9) mg/dL Total Protein 6.5 (6.4-8.2) g/dL Albumin 2.72 L (3.40-5.00) g/dL Specimen Type Urine Color (YELLOW) Urine Appearance (CLEAR) Urine pH (5.0-9.0) Ur Specific [place] (1.005-1.030) Urine Protein (NEGATIVE) mg/dL Urine Glucose (UA) (NEGATIVE) mg/dL Urine Ketones (NEGATIVE) mg/dL Urine Occult Blood (NEGATIVE) Urine Nitrite (NEGATIVE) Urine Bilirubin (NEGATIVE) Urine Urobilinogen (0.2-1.0) E.U./dL Ur Leukocyte Esterase (NEGATIVE) Urine RBC (0-5) /HPF Urine WBC (0-5) /HPF Ur Epithelial Cells /LPF Urine Bacteria (NONE TO FEW) /HPF SARS CoV-2 RNA Rapid BHUMIKA (NEGATIVE) 12/23/20 Range/Units 09:30 WBC (5.00-10.00) 10^3/uL RBC (3.80-5.50) 10^6/uL Hgb (12.0-16.0) g/dL Hct (37.0-47.0) % MCV (82.0-92.0) fL MCH (27.0-31.0) pg MCHC (32.0-36.0) g/dL RDW (11.5-14.5) % Plt Count (150-400) 10^3/uL MPV (7.4-10.4) fL Immature Gran % (Auto) (0.0-5.0) % Neut % (Auto) (50.0-70.0) % Lymph % (Auto) (20.0-40.0) % [place] % (Auto) (2.0-8.0) % Eos % (Auto) (1.0-3.0) % Baso % (Auto) (0.0-1.0) % Neut # (Auto) (2.50-7.00) 10^3/uL Lymph # (Auto) (1.00-4.00) 10^3/uL [place] # (Auto) (0.10-0.80) 10^3/uL Eos # (Auto) (0.10-0.30) 10^3/uL Baso # (Auto) (0.00-0.10) 10^3/uL Immature Gran # (Auto) (0.00-0.50) 10^3/uL Sodium (136-145) mmol/L Potassium (3.5-5.1) mmol/L Chloride (98-107) mmol/L Carbon Dioxide (21.0-32.0) mmol/L Anion Gap (5-15) mmol/L BUN (7-18) mg/dL Creatinine (0.51-1.17) mg/dL Est Cr Clr Drug Dosing mL/min Estimated GFR (MDRD) mL/min Glucose (70-140) mg/dL Calcium (8.7-10.3) mg/dL Magnesium (1.8-2.4) mg/dL Total Bilirubin (0.2-1.0) mg/dL AST (15-37) U/L ALT (14-63) U/L Alkaline Phosphatase (46-116) U/L C-Reactive Protein (0.0-0.9) mg/dL Total Protein (6.4-8.2) g/dL Albumin (3.40-5.00) g/dL Specimen Type Urincc Urine Color Yellow (YELLOW) Urine Appearance Clear (CLEAR) Urine pH 5.5 (5.0-9.0) Ur Specific [place] 1.010 (1.005-1.030) Urine Protein Negative (NEGATIVE) mg/dL Urine Glucose (UA) Negative (NEGATIVE) mg/dL Urine Ketones Negative (NEGATIVE) mg/dL Urine Occult Blood Trace-intact H (NEGATIVE) Urine Nitrite Negative (NEGATIVE) Urine Bilirubin Negative (NEGATIVE) Urine Urobilinogen 0.2 (0.2-1.0) E.U./dL Ur Leukocyte Esterase Trace H (NEGATIVE) Urine RBC 0-5 (0-5) /HPF Urine WBC 5-10 H (0-5) /HPF Ur Epithelial Cells Few /LPF Urine Bacteria Rare (NONE TO FEW) /HPF SARS CoV-2 RNA Rapid BHUMIKA (NEGATIVE) Result Diagrams: 12/23/20 07:30 12/23/20 07:30 Sepsis Event Note - Evaluation Sepsis Screening Result: Possible Sepsis Risk - Focused Exam Vital Signs: Vital Signs Temp Pulse Resp BP Pulse Ox 12/23/20 14:25 36.1 C 76 16 156/69 H 96 12/23/20 10:56 36.3 C 67 16 138/82 97 12/23/20 06:34 36.8 C 80 16 135/67 96 Problem List Initiated/Reviewed/Updated: Yes Orders Last 24hrs: Active Orders 24 hr Category Date Time Status Patient Status [ADT] Routine ADT 12/23/20 00:46 Active Activity as Tolerated [RC] .Routine Care 12/23/20 00:53 Active Cardiac Monitoring [RC] 03,07,11,15,19,23 Care 12/23/20 00:53 Active Ready for Discharge [RC] PER UNIT ROUTINE Care 12/23/20 14:48 Ordered Vital Signs [RC] 03,07,11,15,19,23 Care 12/23/20 00:46 Active [place] [Soft Diet] [DIET] Diet 12/23/20 Breakfast Active Atropine [Atropine 0.1 MG/ML] Med 12/23/20 00:53 Active See Dose Instructions IVPUSH ASDIRECTED PRN EPINEPHrine [EPINEPHrine 1:10,000] Med 12/23/20 00:53 Active 1 mg IVPUSH ASDIRECTED PRN Lidocaine 2% [Xylocaine 2%] Med 12/23/20 00:53 Active See Dose Instructions IVPUSH ASDIRECTED PRN Nitroglycerin [Nitrostat] Med 12/23/20 00:53 Active 0.4 mg SL ASDIRECTED PRN Omeprazole Med 12/24/20 07:30 Active 40 mg PO ACBREAKFAST Potassium Chloride [Klor-Con M20] Med 12/23/20 11:15 Active 20 meq PO DAILY Sodium Chloride 0.9% [Normal Saline] 1,000 ml Med 12/23/20 01:30 Active IV ASDIRECTED Code Status [Resuscitation Status] Stat Resus Stat 08/28/21 00:51 Ordered Medication Orders Atropine Sulfate (Atropine 0.1 Mg/Ml 10 Ml Syringe) 0 mg IVPUSH ASDIRECTED PRN PRN Reason: Heart. Epinephrine HCl (Epinephrine 1:10,000 1 Mg/10 Ml Syringe) 1 mg IVPUSH ASDIRECTED PRN PRN Reason: Heart. Sodium Chloride (Normal Saline) 1,000 mls @ 125 mls/hr IV ASDIRECTED [facility] Last Admin: 12/23/20 10:09 Dose: 125 mls/hr Documented by: Infusion: 12/23/20 09:50 Dose: 125 mls/hr Documented by: Admin: 12/23/20 01:50 Dose: 125 mls/hr Documented by: DAVID Lidocaine HCl (Lidocaine 2% 100 Mg/5 Ml Syringe) 0 mg IVPUSH ASDIRECTED PRN PRN Reason: Heart. Nitroglycerin (Nitroglycerin 0.4 Mg Tab.Sl) 0.4 mg SL ASDIRECTED PRN PRN Reason: Heart. Omeprazole (Omeprazole 20 Mg Cap.Cr) 40 mg PO ACBREAKFAST [facility] Last Admin: 12/23/20 11:28 Dose: 40 mg Documented by: ZAMZAM Potassium Chloride (Potassium Chloride 20 Meq Tab.Er) 20 meq PO DAILY [facility] Last Admin: 12/23/20 11:17 Dose: 20 meq Documented by: ZAMZAM Assessment/Plan Comment:: HPI summary: 60 year old female admitted with hypokalemia, nausea, vomiting, diarrhea. P atient reports symptoms started last evening and she presented to the ED via personal car. Symptoms improved while in the ED, however it was noted she had hypokalemia. Patient has pertinent history of colitis and small bowel obstruction. ED course: -VS: 97.1-67-18-106/58-93% -Lab: WBC 15.15, Neut 79.8%, Na 142, K 2.4, anion gap 16.1, remainder of labs unremarkable. Urine ok; COVID neg -D5 1/2 NS w/ 20mEq KCl @ 100/hr -Admit obs Hospital course: 12/22/2020: Patient admitted observation to floor, IVF switched to NS at 125mL/hr with KCl 20mEq cocktails IV x 2. Will obtain repeat lab in the AM. Keep NPO overnight. Hospitalization problems and plan: # Hypokalemia # Vomiting # Nausea # Diarrhea -NS 125mL/hr -KCl 20mEq cocktail x 2 -CBC, CMP Chronic, stable conditions: # HTN; will hold lisinopril # HLD; hold atorvastatin # Fibromyalgia; hold amitriptyline # Colitis; hold miralax # GERD; may given omeprazole # Glaucoma; hold eye drops # Depression/anxiety: hold antidepressant Hospitalization details: # FEN: NS 125mL/hr; potassium improved to 3.3 from 2.4; chanted to bland diet from NPO # PPX: N/A # Code status: Full # Emergency contact: Daughter, updated by patient # Disposition: home later this afternoon if tolerates intake - Mortality Measure Prognosis:: Good
[2020-12-24] MEDS ORDERED: Omeprazole 20 MG Cap.CR PO SCH (07:30)
== END 2020-12-23 16:07 | disposition home or self-care (01) ==
LOC: KA.ED 22:30 → KA.MS 12-23 00:46 → UNDOADMOB 12-23 01:05 → UNDODISOB 12-23 16:07
PROVIDERS: ADMIT Physician Assistant; ATTEND Nurse Practitioner Family
DX: E87.6 Hypokalemia (principal); R11.2 Nausea with vomiting, unspecified; R19.7 Diarrhea, unspecified; E78.00 Pure hypercholesterolemia, unspecified; I10 Essential (primary) hypertension; K21.9 Gastro-esophageal reflux disease without esophagitis; E78.5 Hyperlipidemia, unspecified; M79.7 Fibromyalgia; K52.9 Noninfective gastroenteritis and colitis, unspecified; H40.9 Unspecified glaucoma; Z20.822 Contact with and (suspected) exposure to COVID-19; Z79.899 Other long term (current) drug therapy; Z98.890 Other specified postprocedural states
CPT/HCPCS: 36415; 80053; 81001; 83735; 85025; 86140; A9270; J3480; J7030; U0002; 96365; 96366; 99284; 99284-25; G0378

== ENCOUNTER 2021-09-19 11:53 | Day surgery (SDC) | payer MEDICARE, BC ==
[2021-09-19] MEDS ORDERED: Midazolam 1 MG/ML 2 ML SDV ONE (12:43)
[2021-09-19] MEDS ORDERED: Propofol 200 MG/20 ML SDV ONE (12:43)
[2021-09-19] MEDS ORDERED: Sodium Chloride 0.9% 10 ML Syringe FLUSH PRN (13:00)
[2021-09-19] MEDS ORDERED: Lactated Ringers 1,000 ML IV SCH (13:00)
[2021-09-19 16:04] VITALS: BP 145/75; PULSE 75
== END 2021-09-19 15:50 | disposition home or self-care (01) ==
LOC: KA.SDS 11:53
PROVIDERS: ATTEND Family Medicine
DX: K64.8 Other hemorrhoids (principal); Z20.822 Contact with and (suspected) exposure to COVID-19
CPT/HCPCS: 00811; J2250; J2704; J7120

== ENCOUNTER 2023-03-18 15:10 | Emergency (ER) | payer BC, MEDICARE, OTHER ==
[2023-03-18 15:33] LABS: BASOPHILS ABSOLUTE AUTO 0.03 10^3/uL (0.00-0.10); BASOPHILS PERCENT AUTO 0.4 % (0.0-1.0); EOSINOPHILS ABSOLUTE AUTO 0.22 10^3/uL (0.10-0.30); HEMATOCRIT 37.9 % (37.0-47.0); HEMOGLOBIN 12.4 g/dL (12.0-16.0); IMMATURE GRAN ABSOLUTE AUTO 0.02 10^3/uL (0.00-0.50); IMMATURE GRAN PERCENT AUTO 0.3 % (0.0-5.0); LYMPHOCYTES ABSOLUTE AUTO 1.78 10^3/uL (1.00-4.00); MEAN CORPUSCULAR HEMOGLOBIN 29.3 pg (27.0-31.0); MEAN CORPUSCULAR HGB CONC 32.7 g/dL (32.0-36.0); MEAN CORPUSCULAR VOLUME 89.6 fL (82.0-92.0); MEAN PLATELET VOLUME 10.2 fL (7.4-10.4); MONOCYTES ABSOLUTE AUTO 0.51 10^3/uL (0.10-0.80); MONOCYTES PERCENT AUTO 6.9 % (2.0-8.0); NEUTROPHILS ABSOLUTE AUTO 4.87 10^3/uL (2.50-7.00); NEUTROPHILS PERCENT AUTO 65.4 % (50.0-70.0); PLATELET COUNT,PLT 205 10^3/uL (150-400); RED BLOOD CELL COUNT 4.23 10^6/uL (3.80-5.50); RED CELL DISTRIBUTION WIDTH 13.1 % (11.5-14.5); WHITE BLOOD CELL COUNT,WBC 7.43 10^3/uL (5.00-10.00)
[2023-03-18 15:49] LABS: ANION GAP 10.2 mmol/L (5-15); CALCIUM 8.1 mg/dL (8.7-10.3); CARBON DIOXIDE,CO2 30.1 mmol/L (21.0-32.0); CREATININE 0.8 mg/dL (0.51-1.17); EST CRCL DRUG DOSING (CG) 57.67 mL/min
[2023-03-18 15:54] LABS: POTASSIUM,K 2.3 mmol/L (3.5-5.1)
[2023-03-18] MEDS: NS + KCl 20mEq/L 1,000 ML IV SCH (16:15)
[2023-03-18 18:43] VITALS: BP 160/83; PULSE 62
== END 2023-03-18 19:17 | disposition home or self-care (01) ==
LOC: KA.ED 15:10
DX: E87.6 Hypokalemia (principal); E86.0 Dehydration; I10 Essential (primary) hypertension; E78.00 Pure hypercholesterolemia, unspecified; K21.9 Gastro-esophageal reflux disease without esophagitis; Z79.899 Other long term (current) drug therapy
CPT/HCPCS: 36415; 70450; 80048; 83735; 85025; 96365; 96366; 99284; J3480

== ENCOUNTER 2024-11-27 16:46 | Emergency (ER) | payer MEDICARE ==
[2024-11-27 17:01] VITALS: PULSE 74
[2024-11-27 17:49] VITALS: BP 137/75
== END 2024-11-27 17:53 | disposition home or self-care (01) ==
LOC: KA.ED 16:46
DX: S40.011A Contusion of right shoulder, initial encounter (principal); I10 Essential (primary) hypertension; E78.00 Pure hypercholesterolemia, unspecified; K21.9 Gastro-esophageal reflux disease without esophagitis; Z79.899 Other long term (current) drug therapy; W18.30XA Fall on same level, unspecified, initial encounter
CPT/HCPCS: 73030-RT; 99283